=== PATIENT | male | born 1955 | race Caucasian/White ===

== ENCOUNTER 2024-01-28 13:16 | Outpatient (CLI) | payer MEDICARE, BC, SELFPAY | END 2024-01-28 13:17 | disposition home or self-care (01) | LOC: AMB 01-30 22:54 | PROVIDERS: PCP Student in an Organized Health Care Education/Training Program; Visit Provider Family Medicine | DX: R53.1 Weakness (principal) | CPT/HCPCS: A0425; A0434 ==